=== PATIENT | female | born 1975 | race African-American/Black ===

== ENCOUNTER 2021-06-12 04:21 | Day surgery (SDC) | payer OTHER ==
[2021-06-11 13:41] VITALS: BMI 26.9
[2021-06-12] MEDS ORDERED: oxyCODONE HCL 5 MG TABLET PO PRN (09:54)
[2021-06-12] MEDS ORDERED: ACETAMINOPHEN 325 MG TABLET (FP) PO PRN (09:54)
[2021-06-12] MEDS ORDERED: IBUPROFEN 400 MG TABLET (FP) PO PRN (09:54)
[2021-06-12] MEDS ORDERED: ONDANSETRON 4 MG/2 ML VIAL IVPUSH PRN (09:55)
[2021-06-12] MEDS ORDERED: PROPOFOL 20 ML ONE ×2 (10:02)
[2021-06-12] MEDS ORDERED: LIDOCAINE HCL/PF 2% SDV 5ML VIAL ONE (10:03)
[2021-06-12] MEDS ORDERED: ceFAZolin SODIUM 1 GM VIAL ONE (10:03)
[2021-06-12] MEDS ORDERED: DEXAMETHASONE SOD PHOSPHATE 4 MG/1 ML VIAL ONE (10:03)
[2021-06-12] MEDS ORDERED: MIDAZOLAM HCL 2 MG/2 ML SINGLE DOSE VIAL ONE (10:16)
[2021-06-12] MEDS ORDERED: KETOROLAC TROMETHAMINE 30 MG/1 ML VIAL ONE (10:40)
[2021-06-12] MEDS ORDERED: LACTATED RINGERS SOLUTION 1,000 ML IV SCH (12:30)
[2021-06-12] MEDS ORDERED: ACETAMINOPHEN 325 MG TABLET (FP) ONE (12:38)
[2021-06-12] MEDS ORDERED: ACETAMINOPHEN 325 MG TABLET (FP) PO ONE (12:41)
[2021-06-12] MEDS ORDERED: oxyCODONE HCL 5 MG TABLET PO ONE (12:41)
[2021-06-12] MEDS ORDERED: oxyCODONE HCL 5 MG TABLET ONE (12:43)
[2021-06-12 15:27] VITALS: PULSE 59; TEMP 97.3
[2021-06-12 15:29] VITALS: BP 100/67
== END 2021-06-12 14:30 | disposition home or self-care (01) ==
LOC: JASU-SURG 04:21
PROVIDERS: ATTEND Obstetrics & Gynecology
PROC: 0UB98ZX Excision of Uterus, Via Natural or Artificial Opening Endoscopic, Diagnostic (ICD-10-PCS; principal; 2021-06-12 11:00)
PROC: 0UDB8ZX Extraction of Endometrium, Via Natural or Artificial Opening Endoscopic, Diagnostic (ICD-10-PCS; 2021-06-12 11:00)
DX: N92.0 Excessive and frequent menstruation with regular cycle (principal); N84.0 Polyp of corpus uteri
CPT/HCPCS: 81025; 94760

== ENCOUNTER 2021-08-05 08:30 | Day surgery (SDC) | payer OTHER ==
[2021-07-31 13:59] VITALS: BMI 27.0
[2021-08-05 08:45] VITALS: TEMP 97.7
[2021-08-05] MEDS ORDERED: PROPOFOL 20 ML ONE ×2 (08:53)
[2021-08-05 10:06] VITALS: PULSE 63
[2021-08-05 10:07] VITALS: BP 92/56
== END 2021-08-05 10:25 | disposition home or self-care (01) ==
LOC: FASU-ENDO 08:30
PROVIDERS: ATTEND Internal Medicine Gastroenterology
PROC: 0DBC8ZX Excision of Ileocecal Valve, Via Natural or Artificial Opening Endoscopic, Diagnostic (ICD-10-PCS; principal; 2021-08-05 09:21)
DX: Z12.11 Encounter for screening for malignant neoplasm of colon (principal); K57.30 Diverticulosis of large intestine without perforation or abscess without bleeding; K63.89 Other specified diseases of intestine
CPT/HCPCS: 84703; 88305-TC

== ENCOUNTER 2022-06-23 04:25 | Inpatient (IN) | payer OTHER ==
[2022-06-19 13:39] VITALS: BMI 28.3
[2022-06-23] MEDS ORDERED: LIDOCAINE HCL/PF 2% SDV 5ML VIAL ONE (09:02)
[2022-06-23] MEDS ORDERED: PROPOFOL 20 ML ONE (09:03)
[2022-06-23] MEDS ORDERED: MIDAZOLAM HCL 2 MG/2 ML SINGLE DOSE VIAL ONE (09:03)
[2022-06-23] MEDS ORDERED: ROCURONIUM BROMIDE 50 MG/5 ML SYRINGE ONE (09:20)
[2022-06-23] MEDS ORDERED: ceFAZolin SODIUM 1 GM VIAL IVPB ONE (09:30)
[2022-06-23] MEDS ORDERED: METHYLENE BLUE 50 MG/10 ML AMPUL ONE (09:34)
[2022-06-23] MEDS ORDERED: ACETAMINOPHEN INJECTION 100 ML IVPB ONE (09:35)
[2022-06-23] MEDS ORDERED: BUPIVACAINE HCL/PF 0.5% (5MG/ML) 10 ML VIAL ONE (11:33)
[2022-06-23] MEDS ORDERED: BUPIVACAINE HCL/PF 0.5% (5 MG/ML) 30 ML VIAL IJ ONE (11:38)
[2022-06-23] MEDS ORDERED: ONDANSETRON 4 MG/2 ML VIAL IVPUSH PRN (12:05)
[2022-06-23] MEDS ORDERED: IBUPROFEN 800 MG/8 ML IJ IVPB PRN (13:05)
[2022-06-23] MEDS ORDERED: oxyCODONE HCL 5 MG TABLET PO PRN (13:05)
[2022-06-23] MEDS ORDERED: ACETAMINOPHEN 1000 MG/100 ML BAG IVPB PRN (13:06)
[2022-06-23] MEDS: LACTATED RINGERS SOLUTION 1,000 ML IV SCH ×2 (14:00→22:22)
[2022-06-23] MEDS: ONDANSETRON 4 MG/2 ML VIAL IVPUSH PRN (19:14)
[2022-06-23] MEDS ORDERED: BISACODYL 10 MG SUPP.RECT PR PRN (20:06)
[2022-06-23] MEDS: morphine SULFATE 4 MG/ML VIAL IVPUSH PRN (20:32)
[2022-06-24] MEDS: morphine SULFATE 4 MG/ML VIAL IVPUSH PRN (00:42)
[2022-06-24] MEDS: ONDANSETRON 4 MG/2 ML VIAL IVPUSH PRN (00:48)
[2022-06-24 08:59] LABS: HEMATOCRIT 31.7 % (32.4-45.2); HEMOGLOBIN 10.4 GM/dL (10.7-15.3); MCH 27.1 pg (25.7-33.7); MCHC 32.6 g/dl (32.0-36.0); MEAN CELL VOLUME 82.9 fl (80-96); MEAN PLT VOLUME 8.7 fl (7.5-11.1); PLATELET COUNT 225 10^3/uL (134-434); RBC 3.83 M/mm3 (3.60-5.2); RDW 13.7 % (11.6-15.6); WHITE BLOOD COUNT 10.6 K/mm3 (4.0-10.0)
[2022-06-24] MEDS ORDERED: PROMETHAZINE HCL 25 MG/1 ML VIAL IVPB PRN (09:06)
[2022-06-24] MEDS ORDERED: ACETAMINOPHEN 1000 MG/100 ML BAG IVPB SCH (10:00)
[2022-06-24] MEDS: IBUPROFEN 800 MG/8 ML IJ IVPB SCH ×3 (10:17→21:23)
[2022-06-24] MEDS: LACTATED RINGERS SOLUTION 1,000 ML IV SCH (18:03)
[2022-06-24] MEDS: ACETAMINOPHEN 1000 MG/100 ML BAG IVPB SCH (18:15)
[2022-06-25] MEDS: ACETAMINOPHEN 1000 MG/100 ML BAG IVPB SCH ×2 (00:23→06:14)
[2022-06-25] MEDS: IBUPROFEN 800 MG/8 ML IJ IVPB SCH ×2 (03:52→09:18)
[2022-06-25] MEDS ORDERED: ACETAMINOPHEN 500 MG TABLET (FP) PO SCH (11:00)
[2022-06-25] MEDS ORDERED: ACETAMINOPHEN 325 MG TABLET (FP) PO SCH (11:00)
[2022-06-25 12:15] VITALS: BP 101/64; PULSE 57; RESP 20; TEMP 98.2
[2022-06-25] MEDS ORDERED: IBUPROFEN 600 MG TABLET (FP) PO SCH (14:00)
== END 2022-06-25 16:10 | disposition home or self-care (01) | DRG 743 ==
LOC: JASUSAT 04:25 → EDSTATUS 09:00 → J3W 15:39 → JASUSAT 15:52
PROVIDERS: ADMIT Obstetrics & Gynecology; ATTEND Obstetrics & Gynecology
PROC: 0UT2FZZ Resection of Bilateral Ovaries, Via Natural or Artificial Opening With Percutaneous Endoscopic Assistance (ICD-10-PCS; 2022-06-23)
PROC: 0UT94ZZ Resection of Uterus, Percutaneous Endoscopic Approach (ICD-10-PCS; principal; 2022-06-23 09:00)
PROC: 0UT7FZZ Resection of Bilateral Fallopian Tubes, Via Natural or Artificial Opening With Percutaneous Endoscopic Assistance (ICD-10-PCS; 2022-06-23 09:00)
DX: N80.00 Endometriosis of the uterus, unspecified (principal); N80.03 Adenomyosis of the uterus; N92.0 Excessive and frequent menstruation with regular cycle; N94.6 Dysmenorrhea, unspecified; N72 Inflammatory disease of cervix uteri
CPT/HCPCS: 36415; 81025; 85027; 88305-TC; 94760; Q9968